=== PATIENT | female | born 1995 | race Caucasian/White ===

== ENCOUNTER 2023-06-29 18:15 | Emergency (ER) | payer OTHER, SELFPAY ==
[2023-06-29 18:28] VITALS: BP 143/82
[2023-06-29 18:43] LABS: % Basophils 0.4 % (0-2); % Eosinophils 0.9 % (0-6); % Immature Granulocytes 0.3 % (0-0.5); % Lymphocytes 15.1 % (20.5-51.1); % Monocytes 3.9 % (1.7-9.3); % Neutrophils 79.4 % (42.2-75.2); Absolute Basophils 0.1 10^3/uL (0-0.2); Absolute Eosinophils 0.1 10^3/uL (0-0.7); Absolute Immature Granulocytes 0.1 10^3/uL (0-0.05); Absolute Lymphocytes 2.4 10^3/uL (1.2-3.4); Absolute Monocytes 0.6 10^3/uL (0.1-0.6); Absolute Neutrophils 12.7 10^3/uL (1.4-6.5); Hematocrit 33.7 % (37.0-47.0); Hemoglobin 11.2 g/dL (12.0-16.0); Mean Corp Hgb Conc. 33.2 g/dL (33.0-37.0); Mean Corpuscular Hgb 24.8 pg (27.0-31.0); Mean Corpuscular Volume 74.6 fL (81.0-99.0); Mean Platelet Volume 10.3 fL (7.4-10.4); Nucleated Red Blood Cells % 0 %; Platelet Count 385 10^3/uL (130-400); Red Blood Cell Count 4.52 10^6/uL (4.20-5.40); Red Cell Dist. Width 14.5 % (11.5-14.5)
[2023-06-29 19:06] LABS: ALT (SGPT) 82 U/L (0-35); AST (SGOT) 147 U/L (14-36); Albumin 4.3 g/dl (3.5-5.0); Alkaline Phosphatase 89 U/L (38-126); Blood Urea Nitrogen 19 mg/dl (7-17); Calcium 9.7 mg/dl (8.4-10.2); Carbon Dioxide 24 mmol/L (22-30); Chloride 99 mmol/L (98-107); Glucose 94 mg/dl (70-99); Sodium 136 mmol/L (135-145); Total Protein 7.2 g/dl (6.3-8.2); eGFR > 60.00
[2023-06-29 19:08] LABS: Troponin I < 0.012 ng/ml
--- NOTE | 2023-06-29 19:43 | ED.GENMED ---
History of Present Illness
General
Chief Complaint: Chest Pain
Time Seen by Provider: 06/29/23 19:43
Travel History
Have you had any contact with someone who has COVID-19?: No
Do you have any symptoms of coronavirus? Fever > 100 degrees, chills, cough, shortness of breath, sore throat, loss of taste or smell, muscle aches, or headache?: No
History of Present Illness
History of Present Illness:
HPI: At about 4:20 PM today, the patient had abrupt onset chest pain starting in the center of the chest to radiate to the back. She took Motrin and now she is feeling improved. She describes the pain at its worst is 10 out of 10. She never had
any shortness of breath. She has no exertional symptoms. She is 12 weeks . Although she reports history of asthma this is only 'when I was a baby'. She is certain that anxiety is not a contributing factor.
EXAM:
GENERAL: Well appearing in minimal distress
HEENT: Moist oral mucosa
CARDIOVASCULAR: No murmurs, normal heart rate, regular rhythm, moderate to severe central chest wall tenderness primarily at the lower sternum
PULMONARY: No respiratory distress, breath sounds are clear and equal
ABDOMEN: Soft with no peritoneal signs, no tenderness, elevated BMI noted
NEUROLOGIC: Excellent strength all extremities, no coordination deficits
PSYCHIATRIC: Appropriate mental status, normal insight and judgement
EXTREMITIES: Nontender, no edema, moves all extremities equally, no calf tenderness no clinical suspicion for DVT
SKIN: No rash, no lesions
TIME OF INITIAL ENCOUNTER: 7:45 PM
NUMBER AND COMPLEXITY OF PROBLEMS ADDRESSED AT THE ENCOUNTER
� Chronic conditions affecting care: Asthma, endometriosis, anxiety
� Acute Exacerbation and/or Progression of Chronic Illness: This is an acute problem
� Differential Diagnosis includes: Chest wall pain, anxiety, costochondritis, ACS very unlike, pneumonia very unlikely, pneumothorax
AMOUNT AND/OR COMPLEXITY OF DATA TO BE REVIEWED AND ANALYZED
� I performed an independent evaluation of and my interpretation is:
EKG: Sinus 72, normal axis, no acute ST abnormality, no change from 09/30/2020
CT:
X-rays: Chest x-ray unremarkable
Laboratory Studies: White count is 16, hemoglobin is 11.2, chemistries unremarkable however AST and ALT are slightly elevated, alk phos and total bili are normal, troponin negative
Other:
� Review of other/old records: I was old records, last white count in October 2022 was slightly elevated 11.3
� Clinical information was obtained by an independent historian: I spoke to her sister at bedside
� Prescriptions/Medications Considered but not given:
� Further testing considered but not performed:
RISK OF COMPLICATIONS AND/OR MORBIDITY OR MORTALITY OF PATIENT MANAGEMENT
� Social determinants of health affecting care: Lives at home
� Discussion with other providers:
� Escalation of care including admission/observation vs risk of discharge considered: The patient had abrupt onset central chest pain but currently symptoms are improved after taking NSAIDs. She has moderately reproducible
anterior chest wall tenderness and never had any shortness of breath. Her vital signs are not consistent with PE. Will give Toradol for pain. She has been taking Motrin at home. On reassessment at 9 PM, she does report some concern over ongoing
pain. She does have significantly reproducible chest wall tenderness to the lower sternum. Although leukocytosis is noted, her vital signs are relatively unremarkable. Minimal transaminase elevation of doubtful clinical significance as she has no
abdominal pain or tenderness.
Past History
Past History
ED Past Medical History: Other (concussion 2010)
ED Past Surgical History: None
Social History
Tobacco: Non-smoker
Alcohol: None
Personal: Single
Living: with family
Employment: Employed
Family History
Family History: Negative Early CAD or Sudden
Phy Exam
Physical Exam
Physical Exam:
See HPI
Scores
Heart Score for Chest Pain Patients
STEMI patient?: Not applicable
Course
Orders/Labs/Results
Orders:
Orders
06/29/23 18:27
Electrocardiogram (*1) Stat
Reason for Study: Chest Pain
06/29/23 18:34
Complete Blood Count/With Diff Urgent
Comprehensive Metabolic Panel Urgent
Troponin I Urgent
06/29/23 19:51
CR Chest - 2 Views Urgent
Comment:
Reason For Exam: central chest pain
06/29/23 21:02
Ketorolac [Toradol] 30 mg IM NOW STA
Abnormal Lab Results
06/29/23
18:34
WBC 16.0 H 10^3/uL
(4.8-10.8)
Hgb 11.2 L g/dL
(12.0-16.0)
Hct 33.7 L %
(37.0-47.0)
MCV 74.6 L fL
(81.0-99.0)
MCH 24.8 L pg
(27.0-31.0)
Abs Immat Gran (auto) 0.1 H 10^3/uL
(0-0.05)
Absolute Neuts (auto) 12.7 H 10^3/uL
(1.4-6.5)
Neutrophils % 79.4 H %
(42.2-75.2)
Lymphocytes % 15.1 L %
(20.5-51.1)
BUN 19 H mg/dl
(7-17)
AST 147 H U/L
(14-36)
ALT 82 H U/L
(0-35)
06/29/23 18:34
06/29/23 18:34
Vital Signs
Initial and Last Documented VS:
Initial Vital Signs
Temp Pulse Resp BP Pulse Ox
98.2 F 90 17 143/82 99
06/29/23 18:28 06/29/23 18:28 06/29/23 18:28 06/29/23 18:28 06/29/23 18:28
Last Documented Vital Signs
Temp Pulse Resp BP Pulse Ox
98.2 F 90 17 143/82 99
06/29/23 18:28 06/29/23 18:28 06/29/23 18:28 06/29/23 18:28 06/29/23 18:28
*Critical Care Note
Total Time (30-74mins, 75-104mins- exclusive of procedures): Not Applicable
ED Attending Note
-
Portions of this chart may have been created with voice recognition software.� Occasional wrong word or��sound alike� substitutions may have occurred due to the inherent limitations of voice recognition software.
Discharge Plan
Departure
Patient Disposition: Home (Routine Discharge)
Date of Disposition: 06/29/23
Time of Disposition: 20:52
Patient with high blood pressure during this ER visit?: Yes
Discharge Problem:
Chest pain
Instructions: Chest Pain PCP Follow Up
Prescriptions:
No Action
fluoxetine 10 MG capsule
10 mg PO DAILY
fluoxetine 20 MG capsule
20 mg PO DAILY
metoclopramide HCl 10 mg tablet
10 mg PO Q6H PRN (Reason: nausea and vomiting) Qty: 7 0RF
Referrals:
Hola Narvaez MD [Family Provider] -
Activity Restrictions/Additional Instructions:
The cause of your symptoms is unclear. The chest x-ray was normal. EKG shows no acute abnormality and cardiac blood work is also normal. Your hemoglobin is just slightly low at 11.2.
Interventions
Interventions:
*Risk Screen - Suicide Last Done: 06/29/23 18:28
*General Assessment Last Done: 06/29/23 18:28
*Neglect/Abuse Screening Last Done: 06/29/23 18:28
*ED COVID-19 Vaccine History Last Done: 06/29/23 18:28
Discharge Date and Time
Print Language: [place]
[2023-06-29] MEDS: TORADOL 30 MG IM (21:19)
== END 2023-06-29 21:47 | disposition home or self-care (01) ==
LOC: EMR 18:15
PROVIDERS: Emergency Medicine; EMERGENCY PHYSICIAN Emergency Medicine; FAMILY PHYSICIAN Family Medicine
DX: R07.89 Other chest pain (principal); R74.01 Elevation of levels of liver transaminase levels; F41.9 Anxiety disorder, unspecified; N80.9 Endometriosis, unspecified; J45.909 Unspecified asthma, uncomplicated; R03.0 Elevated blood-pressure reading, without diagnosis of hypertension
CPT/HCPCS: 99285; 96372; 71046; 80053; 84484; 85025; 93005

== ENCOUNTER → 2023-06-30 14:49 | Outpatient (REF) | payer OTHER, SELFPAY | LOC: RAD 14:49 | PROVIDERS: ATTENDING PHYSICIAN Nurse Practitioner Family | DX: R10.11 Right upper quadrant pain (principal); R10.9 Unspecified abdominal pain; R74.01 Elevation of levels of liver transaminase levels; Z39.2 Encounter for routine postpartum follow-up; R80.8 Other proteinuria; D72.829 Elevated white blood cell count, unspecified | CPT/HCPCS: 76700 ==

== ENCOUNTER 2023-07-01 02:32 | Inpatient (IN) | payer OTHER, SELFPAY ==
[2023-06-30 23:27] VITALS: BMI 43.6
[2023-06-30 23:30] VITALS: BP 140/86
--- NOTE | 2023-06-30 23:56 | ED.GENMED ---
History of Present Illness
General
Chief Complaint: Chest Pain
Source: patient and records
Time Seen by Provider: 06/30/23 23:48
Travel History
Have you had any contact with someone who has COVID-19?: No
Do you have any symptoms of coronavirus? Fever > 100 degrees, chills, cough, shortness of breath, sore throat, loss of taste or smell, muscle aches, or headache?: No
History of Present Illness
History of Present Illness:
28-year-old female with past medical history of asthma, 3 months , presenting to the emergency department for evaluation after being seen last night for right-sided chest pain, worse with deep inspiration or yawning, worse with
palpation, symptoms continuing today despite Toradol given last night and continued Motrin at home with last dose being around 6 PM. Patient had lab work and a chest x-ray completed which did not show any abnormalities. She had an ultrasound done
as an outpatient today of her abdomen which was also unremarkable. Due to continued pain bite her ibuprofen decided to come to the ER again for further evaluation. She denies any cough, fevers, hemoptysis, lower extremity edema or any other
concerns. Patient is currently not breast-feeding. Social history noncontributory. Family history also noncontributory.
Past History
Past History
ED Past Medical History: Asthma, Psychiatric and Other (concussion 2010)
ED Past Surgical History:
Social History
Tobacco: Non-smoker
Alcohol: None
Drug: None
Personal:
Living: with family
Employment: Employed
Family History
Family History: Negative Early CAD or Sudden
Review of Systems
Review of Systems
All Other Systems: ROS reviewed and negative except as documented in HPI and ROS
Phy Exam
Physical Exam
Physical Exam:
GENERAL: Alert , in no apparent distress
EYE: conjunctiva clear
NECK: Supple
ENT: o/p clr, mmm.
CARDIAC: Regular rate and rhythm
LUNGS: Clear breath sounds bilaterally, no acute respiratory distress, no wheezes/rales/rhonchi
Chest wall: Clearly reproducible tenderness over the right anterior chest wall just superior to the breast and along the sternum on the right side
Abdomen: Soft, RUQ ttp but negative angel sign. no RLQ ttp. no r/g
NEUROLOGICAL: Alert and oriented
SKIN: Warm and dry, skin intact.
MUSCULOSKELETAL: well perfused. No edema
PSYCH: Normal and appropriate interaction.
Scores
Heart Failure Risk
Heart Failure Risk Score: Not Applicable
Heart Score for Chest Pain Patients
STEMI patient?: No
History: Slightly or Non-Suspicious
ECG: Normal
Age: </= 45 years
Risk Factors: No Risk Factors
Troponin: </= Normal Limit
Heart Score for Chest Pain Patients: 0
Heart Score Risk: 2.5% MACE over next 6 weeks
Withdrawal Assessment of Alcohol
Withdrawal Assessment Completed?: Not applicable
Course
Orders/Labs/Results
Orders:
Orders
06/30/23 23:56
Complete Blood Count/With Diff Urgent
Comprehensive Metabolic Panel Urgent
Troponin I Urgent
07/01/23 00:00
CT Chest Pe Study Urgent
Reason For Exam: right sided pleuritic pain, 3 months post
07/01/23 00:02
Electrocardiogram (*1) Urgent
Reason for Study: Chest Pain
EKG- Treatment ONCE
07/01/23 00:18
Lipase Urgent
Comment: ADDED
07/01/23 01:09
Morphine Sulfate 4 mg IV NOW STA
07/01/23 01:10
Piperacillin/Tazo 3.375 Gram [Zosyn] 3.375 gram in 50 ml IV NOW
07/01/23 01:12
Add On- LAB Urgent
Tests Added?: lipase
07/01/23 01:31
Ondansetron Injectable [Zofran] 4 mg .ROUTE .STK-MED ONE
07/01/23 02:19
Admit/Transfer Patient As Directed
Co-Sign Provider:
Level of Care: Inpatient admission
Assign to:: Medical/Surgical
Physician / Group: Stan
Diagnosis: Choledocholithiasis
Reason for Hospitalization: Choledocholithiasis
Expected length of stay greater than two midnights?: Yes
ELOS- Estimated Length of Stay in days: 3
I certify the patient meets the requirements for IP care: Yes
07/01/23 02:20
Code Status As Directed
Resuscitation Status: Full Code
07/01/23 03:13
0.9% Sodium Chloride 1000 ml [Nss] 1,000 ml IV 100 mls/hr
07/01/23 03:58
Acetaminophen [Tylenol] 650 mg PO Q4HPRN PRN
HYDROmorphone [Dilaudid] 0.5 mg IV Q4HPRN PRN
Ketorolac [Toradol] 15 mg IV Q6HPRN PRN
Ondansetron Injectable [Zofran] 4 mg IV Q6HPRN PRN
07/01/23 03:58
Consult Notification Routine
Specialty to Notify: Gastroenterology
Date consulting provider notified: 07/01/23
Time consulting provider notified: 08:58
Notified:: Provider
Comment: TT to Dr Hagan
GASTROINTESTINAL CONSULT Routine
Consulting Provider: Ashly Hagan
Was physician already notified: No
Reason for consult: Choledocholithiasis
SURGICAL CONSULT Routine
Consulting Provider: Sudhir Ellington
Was physician already notified: Yes
Reason for consult: Cholelithiasis / Choledocholithiasis
Activity As Directed
Activity Level: Ambulate
I/O [Intake/ Output] As Directed
Frequency: Per unit guidelines
Pneumatic Compression Sleeves As Directed
Type: Knee high
Vital Signs As Directed
Frequency: Per unit guidelines
Oxygen Therapy [O2 Therapy] [RESP] Routine
Titrate/Wean O2 to maintain O2 sat greater than (%): 94
DX Deep Vein Thrombosis Video Routine
07/01/23 06:28
Complete Blood Count/No Diff IN AM
07/01/23 08:00
Pantoprazole [Protonix IV] 40 mg IV DAILY
Piperacillin/Tazo 3.375 Gram [Zosyn] 3.375 gram in 50 ml IV Q6H
Abnormal Lab Results
07/01/23
00:18
Hgb 11.0 L g/dL
(12.0-16.0)
Hct 33.9 L %
(37.0-47.0)
MCV 76.7 L fL
(81.0-99.0)
MCH 24.9 L pg
(27.0-31.0)
MCHC 32.4 L g/dL
(33.0-37.0)
MPV 10.8 H fL
(7.4-10.4)
Abs Immat Gran (auto) 0.1 H 10^3/uL
(0-0.05)
Immature Gran % 1.3 H %
(0-0.5)
BUN 19 H mg/dl
(7-17)
Glucose 102 H mg/dl
(70-99)
Total Bilirubin 3.8 H D mg/dl
(0.2-1.3)
AST 1031 H* U/L
(14-36)
ALT 1225 H* U/L
(0-35)
Alkaline Phosphatase 247 H U/L
(38-126)
07/01/23 00:18
07/01/23 00:18
Vital Signs
Initial and Last Documented VS:
Initial Vital Signs
Temp Pulse Resp BP Pulse Ox
98.1 F 68 20 140/86 95
06/30/23 23:30 06/30/23 23:30 06/30/23 23:30 06/30/23 23:30 06/30/23 23:30
Last Documented Vital Signs
Temp Pulse Resp BP Pulse Ox
97.5 F 65 18 116/63 96
07/04/23 03:02 07/04/23 03:02 07/04/23 03:02 07/04/23 03:02 07/04/23 03:02
MDM/Problems Addressed
Differential Diagnosis Includes:
Costochondritis, pleurisy, PE, no concern for atypical ACS presentation, cholelithiasis (seen on US earlier today),choleycystitis thought to be less likely given US findings
MDM/Problems Addressed:
28-year-old female presenting back to the emergency department after being evaluated in the ER last night for right-sided musculoskeletal chest wall pain. Symptoms are unchanged today but persistent. Based off physical exam I still suspect
muscular etiology is to be the most likely diagnosis but given this is patient's second visit to the ER in 2 days will obtain a CTA of the chest to rule out pulmonary embolism. Labs from yesterday were reviewed. Will repeat basic labs and
troponin. Reassessment following with anticipation of patient has a normal CTA she will be discharged.
*Radiology
Radiology exam reviewed: radiology read reviewed
*Pulse Oximetry
Patient hypoxic: no
*EKG
Interpreted by ED Provider?: Yes
Comparison EKG: no changes
Heart Rate: 71
Rate: normal
Rhythm: sinus
Ischemia: no ischemia
*Critical Care Note
Total Time (30-74mins, 75-104mins- exclusive of procedures): Not Applicable
Data Reviewed
Review of Other/Old Records Reveals: Labs, Records and Radiology Studies
Patient Management
Discussion with other providers: Hospitalist and Picking Tech
Escalation/DeEscalation of care consider admission/obs:
Patient's labs reveal significant liver function abnormalities with a total bilirubin of 3.8, AST of 1031 and ALT of 1225. Patient had only mildly elevated AST and ALT yesterday on lab work. Her ultrasound from earlier today was reviewed which
showed cholelithiasis without evidence for acute cholecystitis, ultrasound was otherwise unremarkable.
Based off patient's lab findings combined with her ultrasound findings earlier today I do suspect cholecystitis/choledocholithiasis to now be the most likely diagnosis. I attempted to have patient CT scan canceled however she had just completed the
study after her liver function test had resulted. I notified on-call general surgeon, Dr. Ellington, who states patient should be admitted to medicine so GI can be consulted as well. He will consult on the patient in the morning. Agrees with plan
for Zosyn. Hospitalist team accepts for continued evaluation and treatment.
Patient was given 4 mg of morphine for further pain control.
ED Attending Note
-
Portions of this chart may have been created with voice recognition software.� Occasional wrong word or��sound alike� substitutions may have occurred due to the inherent limitations of voice recognition software.
Discharge Plan
Departure
Patient Disposition: Admit
Date of Disposition: 07/01/23
Time of Disposition: 01:15
Presentation/result/management discussed w/ accepting MD/DO: Hospitalist
Discharge Problem:
Choledocholithiasis with cholecystitis
Interventions
Interventions:
*Risk Screen - Suicide Last Done: 07/01/23 04:12
*General Assessment Last Done: 06/30/23 23:30
*Neglect/Abuse Screening Last Done: 06/30/23 23:30
ED- Fall Risk Assessment Last Done: 06/30/23 23:30
*ED COVID-19 Vaccine History Last Done: 06/30/23 23:30
*Nursing Disposition Last Done: 07/01/23 04:06
ED- Cardiac Assessment Last Done: 07/01/23 00:19
Discharge Date and Time
Discharge Date/Time: 07/01/23 04:08
[2023-07-01] VITALS (17 sets, daily range): BP systolic 91–132; BP diastolic 48–76; BMI 42.4
[2023-07-01 00:43] LABS: % Eosinophils 3.1 % (0-6); % Immature Granulocytes 1.3 % (0-0.5); % Lymphocytes 23.8 % (20.5-51.1); % Monocytes 5.7 % (1.7-9.3); % Neutrophils 65.1 % (42.2-75.2); Absolute Basophils 0.1 10^3/uL (0-0.2); Absolute Eosinophils 0.2 10^3/uL (0-0.7); Absolute Immature Granulocytes 0.1 10^3/uL (0-0.05); Absolute Lymphocytes 1.5 10^3/uL (1.2-3.4); Absolute Monocytes 0.4 10^3/uL (0.1-0.6); Hematocrit 33.9 % (37.0-47.0); Mean Corp Hgb Conc. 32.4 g/dL (33.0-37.0); Mean Corpuscular Hgb 24.9 pg (27.0-31.0); Mean Corpuscular Volume 76.7 fL (81.0-99.0); Mean Platelet Volume 10.8 fL (7.4-10.4); Nucleated Red Blood Cells % 0 %; Platelet Count 331 10^3/uL (130-400); Red Blood Cell Count 4.42 10^6/uL (4.20-5.40); Red Cell Dist. Width 14.5 % (11.5-14.5); White Blood Cell Count 6.1 10^3/uL (4.8-10.8)
[2023-07-01 00:44] LABS: Alkaline Phosphatase 247 U/L (38-126); Blood Urea Nitrogen 19 mg/dl (7-17); Carbon Dioxide 23 mmol/L (22-30); Chloride 107 mmol/L (98-107); Estimated Creatinine Clearance > 125 ml/min; Glucose 102 mg/dl (70-99); Potassium 4.1 mmol/L (3.5-5.1); Sodium 138 mmol/L (135-145); Total Bilirubin 3.8 mg/dl (0.2-1.3); Total Protein 6.7 g/dl (6.3-8.2); eGFR > 60.00
[2023-07-01 00:53] LABS: Troponin I < 0.012 ng/ml
[2023-07-01 00:57] LABS: ALT (SGPT) 1225 U/L (0-35); AST (SGOT) 1031 U/L (14-36)
[2023-07-01] MEDS: MORPHINE SULFATE 4 MG IV (01:18)
[2023-07-01] MEDS: ZOSYN 50 IV ×4 (01:18→20:21)
--- NOTE | 2023-07-01 02:23 | HPS.HSE ---
Family Physician
-
Family Physician: CHERRY Camp
Chief Complaint
-
Abd Pain
History of Present Illness
Patient is a 28y F with PMH significant for PCOS, endometriosis and obesity who presents to ED complaining of abdominal pain and back pain x 2 days. Patient states that severe pain started yesterday afternoon. She was seen here in the ED and
work-up at that time was unremarkable. Her pain persisted however and she was seen today by her PCP and sent for US. This showed evidence of gallstones, but no ductal dilation, wall thickening or other acute abnormality.
Patient continued to have severe abdominal pain and back pain however and returned to the ED this evening for further evaluation.
She has had some mild nausea, but no emesis (one episode here in the ED after receiving IV Morphine). No fevers / chills. No prior history of similar symptoms.
Patient is 12 weeks , s/p .
She is not actively breast feeding.
Medical History
Past Medical History
Past Medical History: Reports Other
Additional Past Medical History:
PCOS
Obesity
Endometriosis
Anxiety / Depression
Past Surgical History: Reports Other
Additional Past Surgical History:
(12 weeks ago)
Exploratory Laparoscopy (endometriosis)
Social History
Tobacco: Non-smoker
Alcohol: None
Drug: None
Family History
Family History: Other (Father: Lung Cancer Multiple Women on Paternal Side: Breast Cancer)
Allergies / Home Medications
Allergies reflects when Allergies were last updated in [employer].
Home Medications with original date entered in [employer]
Allergy/Medication List:
Allergies
Allergy/AdvReac Type Severity Reaction Status Date / Time
No Known Allergies Allergy Verified 06/30/23 23:30
Home Medications
fluoxetine 20 mg capsule 20 mg PO DAILY 09/30/20
Review of Systems
-
History Source: Patient
A 12 point ROS was completed and negative except as noted: Yes
Constitutional: Denies Fever or Chills
EENT: Denies Sore Throat
Respiratory: Denies Cough or Trouble Breathing
Cardiac: Reports Chest Pain; Denies Diaphoresis or Palpitations
Abdomen/GI: Reports Abdominal Pain and Nausea; Denies Vomiting, Diarrhea, Constipated, Bloody Stools or Black Stools
: Denies Dysuria, Frequency or Flank Pain
Musculoskeletal: Reports Other (Back Pain); Denies Joint Pain or Edema
Neurological: Denies Dizzy or Headache
Psych: Denies Depression or Anxiety
Physical Exam
Vital Signs
Vital Signs
Temp Pulse Resp BP Pulse Ox
98.1 F 68 20 130/71 97
06/30/23 23:30 06/30/23 23:30 06/30/23 23:30 07/01/23 01:00 07/01/23 01:15
Physical Exam
General: Other (28y F in mild distress due to pain.)
HEENT: Moist mucous membranes and PERRLA
Respiratory: Clear; No Wheezes, Rales or Rhonchi
Cardiac: S1/S2 and Regular Rhythm; No Murmur
GI: Other (Obese, significant tenderness in RUQ with diffuse /mild tenderness. Pos BS.)
Musculoskeletal: No Clubbing, No Cyanosis and No Edema
Neuro: AO x 3
Laboratory Results
-
07/01/23 00:18
07/01/23 00:18
Laboratory Results
Total Bilirubin 3.8 mg/dl (0.2-1.3) H D 07/01/23 00:18
AST 1031 U/L (14-36) H* 07/01/23 00:18
ALT 1225 U/L (0-35) H* 07/01/23 00:18
Alkaline Phosphatase 247 U/L (38-126) H 07/01/23 00:18
Troponin I < 0.012 ng/ml 07/01/23 00:18
Impression/Plan
-
A/P: Patient is a 28y F with PMH significant for PCOS, endometriosis and recent - now 12 weeks - who presents to ED complaining of abdominal pain and back pain x 2 days.
Cholelithiasis / Choledocholithiasis +/- Acute Cholecystitis
- Admit for further evaluation and treatment.
- Patient presents with severe abdominal pain and nausea with marked cholestatic LFT abnormality and gallstones (but no other findings) on US earlier today.
- NPO, IVF support, pain control and antiemetics as needed.
- GI and Surgery evaluations for further recommendations.
- ? MRCP v ERCP.
- Will benefit from eventual cholecystectomy.
- Continue IV Zosyn for now.
Endometriosis
PCOS
- Stable. Not currently on OCPs, other medications.
Anxiety / Depression
- Stable. Recently restarted fluoxetine after recent - no issues with this med previously.
- Will hold for now.
12 Weeks
- s/p uneventful .
- Patient is not - so no need to modify medications, etc.
Morbid Obesity due to excess calories
- Affects all aspects of care - specifically increased risks for gallstone / gallbladder disease.
- Encourage healthy diet and increased exercise with goal of weight loss.
DVT Prophylaxis: SCDs
Code Status: Full
[2023-07-01 02:26] LABS: Lipase 140 U/L (23-300)
[2023-07-01] MEDS: NSS 1000 IV ×3 (03:14→23:26)
--- NOTE | 2023-07-01 04:30 | PTCARENOTE ---
Received patient from ED. Patient AAOx3, lungs clear, heart rate reg, no edema, positive pulses. Lower abdomen approximated bikini incision, tender upper right quadrant. 4/10 on the pain scale. VSS. IVF infusing. Patient admitted to the
unit. Patient aware they are NPO except for sips of clears and medications. Call bajwa in reach.
[2023-07-01] MEDS: TORADOL 15 MG IV (04:32)
[2023-07-01 07:03] LABS: Hematocrit 34.7 % (37.0-47.0); Hemoglobin 10.9 g/dL (12.0-16.0); Mean Corp Hgb Conc. 31.4 g/dL (33.0-37.0); Mean Corpuscular Hgb 24.8 pg (27.0-31.0); Mean Corpuscular Volume 78.9 fL (81.0-99.0); Mean Platelet Volume 10.8 fL (7.4-10.4); Platelet Count 302 10^3/uL (130-400); Red Cell Dist. Width 14.5 % (11.5-14.5); White Blood Cell Count 6.8 10^3/uL (4.8-10.8)
--- NOTE | 2023-07-01 07:31 | CON.GS ---
Medical History
-
Chief Complaint: Epigastric and RUQ pain
History of Present Illness:
Patient is a 28 yo F with a PMH of morbid obesity, depression/anxiety, PCOS, endometriosis s/p diagnostic laparoscopy, s/p approximately 12 weeks ago. Ms. Noyola presents with 48 hours of persistent epigastric and back pain. She states
that her symptoms began acutely on . No clear association with oral intake. She describes severe epigastric and RUQ abdominal pain with radiation to her back. Associated mild nausea, 1 episode of vomiting following administration of
morphine here in the hospital. No fevers or chills. She reports some jaundice, but denies any pale stools or tea colored urine. She initially presented to the ER on 06/28, she was told that her symptoms were related to her recent .
Her pain persisted prompting presentation to her PCP who ordered an outpatient ultrasound demonstrating cholelithiasis without any evidence of cholecystitis. Her symptoms persisted prompting 3 presentation to the ED. Workup in the ED was notable
for a normal WBC and lipase, as well as elevations in her bilirubin and LFTs.
Past Medical History
Past Medical History: Psychiatric (Depression/anxiety) and Other (Morbid obesity, PCOS, endometriosis)
Past Surgical History: and Other (Diagnostic laparoscopy for endometriosis)
Social History
Tobacco: Non-Smoker
Alcohol: None
Drug: None
Personal:
Living: With Family
Family History
Family History: Other (Mother postcholecystectomy)
Allergies / Home Medications
Allergy/AdvReac Type Severity Reaction Status Date / Time
No Known Allergies Allergy Verified 06/30/23 23:30
�Medication �Instructions �Recorded �Confirmed �Type
fluoxetine 20 mg capsule 20 mg PO DAILY 09/30/20 07/01/23 History
Review of Systems
-
A 10 point review of systems was completed, and was negative except as per HPI.
Physical Exam
Vital Signs
Temp Pulse Resp BP Pulse Ox
98.2 F 62 20 108/68 98
07/01/23 04:38 07/01/23 04:38 07/01/23 04:38 07/01/23 04:38 07/01/23 04:38
06/30/23 07/01/23 07/02/23
06:59 06:59 06:59
Actual Weight 105.097 kg
Body Mass Index (BMI) 42.4
Lab Results
07/01/23 06:28
WBC 6.8 10^3/uL (4.8-10.8) 07/01/23 06:28
Hgb 10.9 g/dL (12.0-16.0) L 07/01/23 06:28
Hct 34.7 % (37.0-47.0) L 07/01/23 06:28
Plt Count 302 10^3/uL (130-400) 07/01/23 06:28
Abs Immat Gran (auto) 0.1 10^3/uL (0-0.05) H 07/01/23 00:18
Neutrophils % 65.1 % (42.2-75.2) 07/01/23 00:18
Physical Exam
General: Well Developed, Well Nourished and No Apparent Distress
HEENT: Scleral Icterus
Respiratory: Non Labored Respirations
Cardiac: Regular Rhythm
GI: Soft, Tender (RUQ/epigastrium), Distended, Obese and Other (Nonperitoneal)
Musculoskeletal: No Edema
Skin: Warm and Dry
Neuro: Nonfocal/Grossly Intact
Data Reviewed
-
CT Scan: Image Personally Visualized and interpreted and Report Reviewed by me
Ultrasound: Image Personally Visualized and interpreted and Report Reviewed by me
Labs: Labs Reviewed by me
Old Records: Reviewed
Assessment / Plan
-
Patient is a 28 yo F p/w likely choledocholithiasis
The natural history and pathophysiology of biliary and stone disease was discussed. Anatomy was reviewed utilizing pictorial images. Role of cholecystectomy in preventing future episodes of cholecystitis and potentially addressing her
choledocholithiasis was discussed. Options for management including continued workup with an MRI imaging to confirm the presence of choledocholithiasis versus proceeding with cholecystectomy were considered and discussed. The role and potential
need for an ERCP was discussed. We discussed that given this episode, she will need her gallbladder out regardless.
Plan for a laparoscopic cholecystectomy with intraoperative cholangiogram. The procedure itself, as well as the risks, benefits, and alternatives was discussed. Specifically, we discussed the risks of bleeding, infection, injury to surrounding
structures (bowel, bile ducts), CBD injury, need for open procedure. Typical postprocedural recovery was discussed. All questions answered. Consent signed.
-- Laparoscopic cholecystectomy with intraoperative cholangiogram
-- NPO, IVF
-- Antibiotics: Zosyn
-- Pain control: Tylenol and IV Dilaudid PRN
--- NOTE | 2023-07-01 07:39 | W.SUR.PREOP ---
Pre-Operative Surgical Note
-
I have examined this patient prior to the performance of the scheduled procedure.
The patient's condition is unchanged from the time of the current History and
Physical and the patient is able to undergo the scheduled procedure.
[2023-07-01 07:40] LABS: Albumin 3.7 g/dl (3.5-5.0); Alkaline Phosphatase 271 U/L (38-126); Blood Urea Nitrogen 18 mg/dl (7-17); Calcium 8.7 mg/dl (8.4-10.2); Carbon Dioxide 24 mmol/L (22-30); Chloride 108 mmol/L (98-107); Estimated Creatinine Clearance > 125 ml/min; Glucose 88 mg/dl (70-99); Potassium 4.1 mmol/L (3.5-5.1); Sodium 137 mmol/L (135-145); Total Protein 6.4 g/dl (6.3-8.2); eGFR > 60.00
[2023-07-01 07:47] LABS: ALT (SGPT) 1169 U/L (0-35); AST (SGOT) 769 U/L (14-36)
--- NOTE | 2023-07-01 08:05 | CON.GI ---
Addendum entered and electronically signed by Ashly Hagan MD 07/01/23 13:17:
I saw and examined the patient.
The LANE ATTENDANT's note was reviewed and I agree with the note.
Comment: This is a 28-year-old female who presented initially to the emergency room on the with chest pain and was ruled out for acute coronary syndrome and was noted to have mildly elevated AST and ALT level normal bilirubin discharged she
presented again to the emergency room last night with pain radiating to the back and repeat LFTs from yesterday were significantly elevated and also abdomen ultrasound showed gallstones. CBD was 6 mm we were consulted for possible
choledocholithiasis. She did have a cholecystectomy today with Dr. Ellington with IntraOp cholangiogram which showed choledocholithiasis.
Assessment and plan symptomatic gallstones status postcholecystectomy today and she also has significantly elevated LFTs with transaminitis and also elevated bilirubin and alkaline phosphatase consistent with choledocholithiasis which was confirmed
on IOC today. Will schedule her for ERCP on Monday currently has no cholangitis and she is already on antibiotics.
She also has microcytic anemia most likely from recent she is 3 months and from blood loss from menses.
Original Note:
Consultation
-
Date/Time Consultation Requested: 07/01/238
Date/Time Consultation Performed: 07/01/23 0840
Requesting Provider: Dr. Pierce
Performing Provider: Dr. Hagan/CHERRY Cornejo
Reason for Consultation: choledocholithiasis
Medical History
Chief Complaint / HPI
Chief Complaint: chest pain
History of Present Illness:
28-year-old female with past medical history of asthma, 3 months , who presents to the emergency room for the second time for right sided chest discomfort, nausea and vomiting. The patient was found to have elevated LFTs.
Ultrasound showed cholelithiasis with dilatation of the common bile duct but no choledocholithiasis clearly seen on ultrasound. Asked to evaluate the same. Patient states that on she developed acute onset of chest discomfort mostly
localized in the right side that was bandlike fashion, sharp, radiated through to her back. Associated with nausea. She came to the emergency room the same day with normal white count normal LFTs. She was discharged home and took ibuprofen 800 mg
which took the 'edge off the pain'. Because of persistent symptoms she came back to the emergency room. Ultrasound showed cholelithiasis. CBD of 6 mm. Elevated LFTs and an obstructive pattern. The patient did have an episode of vomiting after
taking morphine. She states the pain is currently a 5 out of 10. And it is the same as yesterday. She denies any fevers, chills, melena, hematochezia, dysphagia or odynophagia. No early satiety or unintentional weight loss. She denies any
acholic stools or bilirubinuria. She denies any history of hepatitis, jaundice, liver disease, history of hepatitis, excessive Tylenol use or any Tylenol use recently. She denies any tattoos, piercings, IV drug use, new medications or
supplementation. She recently restarted her fluoxetine. She has been on this in the past but took a hiatus during her . She has had no overall shellfish. No other family members are sick.
Past Medical History
Past Medical History: Asthma and Other (Recently by 3 months.)
Past Surgical History: and Gynecological (Robotic laparoscopic bilateral ovarian cystectomy and lysis of adhesion)
Social History
Tobacco: Non-Smoker
Alcohol: None
Drug: None
Personal:
Living: With Family
Family History
Family History: Other (No family history of gastrointestinal malignancy or IBD)
Allergies / Home Medications
Allergy/AdvReac Type Severity Reaction Status Date / Time
No Known Allergies Allergy Verified 06/30/23 23:30
�Medication �Instructions �Recorded
fluoxetine 20 mg capsule 20 mg PO DAILY 09/30/20
Review of Systems
-
All other systems: A 12 pt ROS was Negative except as stated above in HPI
Vital Signs
Temp Pulse Resp BP Pulse Ox
98.2 F 62 20 108/68 98
07/01/23 04:38 07/01/23 04:38 07/01/23 04:38 07/01/23 04:38 07/01/23 04:38
Physical Exam
Exam
General: No Apparent Distress
HEENT: Other (Sclera icteric)
Respiratory: Clear
Cardiac: Regular Rhythm
GI: Soft, Non Distended, Normal Bowel Sounds and Tender (Mild right upper quadrant tenderness)
Musculoskeletal: No Edema
Skin: Warm and Dry
Neuro: AO x 3
Results
WBC 6.8 10^3/uL (4.8-10.8) 07/01/23 06:28
Hgb 10.9 g/dL (12.0-16.0) L 07/01/23 06:28
Hct 34.7 % (37.0-47.0) L 07/01/23 06:28
MCV 78.9 fL (81.0-99.0) L 07/01/23 06:28
Plt Count 302 10^3/uL (130-400) 07/01/23 06:28
Absolute Neuts (auto) 4.0 10^3/uL (1.4-6.5) 07/01/23 00:18
Sodium 137 mmol/L (135-145) 07/01/23 06:29
Potassium 4.1 mmol/L (3.5-5.1) 07/01/23 06:29
Chloride 108 mmol/L (98-107) H 07/01/23 06:29
Carbon Dioxide 24 mmol/L (22-30) 07/01/23 06:29
BUN 18 mg/dl (7-17) H 07/01/23 06:29
Creatinine 0.7 mg/dL (0.6-1.0) 07/01/23 06:29
Calcium 8.7 mg/dl (8.4-10.2) 07/01/23 06:29
Total Bilirubin 4.0 mg/dl (0.2-1.3) H 07/01/23 06:29
AST 769 U/L (14-36) H* 07/01/23 06:29
ALT 1169 U/L (0-35) H* 07/01/23 06:29
Alkaline Phosphatase 271 U/L (38-126) H 07/01/23 06:29
Lipase 140 U/L (23-300) 07/01/23 00:18
Diagnostic Image Results:
Ultrasound the abdomen 06/30/2023:
IMPRESSION:
1. No acute intra-abdominal process identified sonographically.
2. Cholelithiasis. No findings suspicious for acute cholecystitis.
3. Mild splenomegaly, slightly increased as compared with prior CT 2020.
4. Limited evaluation of midline structures secondary to overlying bowel gas as above.
An urgent reading was requested for this examination; a preliminary report was provided and documented according to standard department procedure.
Electronically signed by Junaid Gomez DO 06/30/2023 4:19 PM
CTA chest 07/01/2023:
IMPRESSION:
No evidence of pulmonary embolism.
The examination was performed after-hours on an emergency basis, with initial preliminary interpretation provided by [facility].
Electronically signed by Yogesh Mccann MD 07/01/2023 6:39 AM
Prior GI Procedures:
EGD: Never
Colonoscopy: Never
Assessment / Plan
-
28-year-old female with past medical history of asthma, 3 months , who presents to the emergency room for the second time for right sided chest discomfort, nausea and vomiting. The patient was found to have elevated LFTs.
Ultrasound showed cholelithiasis with dilatation of the common bile duct but no choledocholithiasis clearly seen on ultrasound. Currently WBC 6.8, hemoglobin 10.9, hematocrit 34.7, platelets 302, sodium 137, potassium 4.1, chloride 108, CO2 24, BUN
18, creatinine 0.7, glucose 88, total bilirubin 4.0 up from 3.8, direct bilirubin 2.0, AST 769 down from 1031, ALT 1169 down from 1225, alk phos 271 up from 247. Troponin less than 0.012, lipase 140. Ultrasound of the abdomen shows CBD 6 mm.
Cholelithiasis. Mild splenomegaly.
Impression:
Cholelithiasis
Abdominal pain with elevated LFTs in an obstructive pattern concerning for possible passed stone versus choledocholithiasis
Transaminitis
Plan:
-Patient going to OR today for cholecystectomy and intraoperative cholangiogram
-If patient has CBD stone will need ERCP, this would need to occur on Monday
-Trend LFTs
-Further recommendations to be forthcoming.
Data Reviewed
-
CT Scan: Report Reviewed by me
Ultrasound: Report Reviewed by me
-
-
Thank you for consultation and allowing me to participate in the patient's care. Please call the care transition mgr GI physician during the after hours with any questions or concerns.
[2023-07-01] MEDS: NSS (PRESERVATIVE FREE) 10 ML IV (08:29)
[2023-07-01] MEDS: PROTONIX IV 40 MG IV (08:29)
--- NOTE | 2023-07-01 12:24 | W.IMMPOSTOP ---
Addendum entered and electronically signed by Sudhir Ellington MD 07/01/23 12:48:
Dic# [id number]
Original Note:
Surgical Immed Post Op Note
-
Primary Surgeon: Chandana
Assisting Surgeon: None
Pre-op Diagnosis: Choledocholithiasis
Post-op Diagnosis: Choledocholithiasis
Procedure Performed: Laparoscopic cholecystectomy
Anesthesia Type: General
Specimen / Cultures:
1. Gallbladder
Estimated Blood Loss: 3 cc
Complications: None
Operative Findings:
1. Mildly distended and flaccid GB with some wall thickening
2. Critical view of safety
3. IOC with distal filling defect, persistent despite flushing and Glucagon
[2023-07-01] MEDS: ZOFRAN 4 MG IV ×2 (12:48→18:21)
[2023-07-01] MEDS: DEMEROL 12.5 MG IV (12:51)
--- NOTE | 2023-07-01 13:29 | W.PN.HOSP.TC ---
Today's Communication/Plan
-
Anemia labs
Clear liquid diet
Assessment / Plan
Assessment / Plan
Gen-AAOx3, NAD, morbid obesity
HEENT-NC, AT, anicteric, clear oral mm
Neck-supple
CV-reg, no M, +S1/S2
Lungs-clear B/L
Abd-soft, NT, ND
Ext-no edema
Musculoskeletal-no cyanosis, clubbing
Skin-warm and dry
Neuro-grossly non-focal
Psych-calm, cooperative
Acute calculus cholecystitis -stable after laparoscopic cholecystectomy today. Diet per surgery.
Choledocholithiasis -GI plans on ERCP on Monday. Transaminases trending down. Continue empiric IV Zosyn.
Microcytic anemia - likely due to state. Check anemia labs.
PCOS
Endometriosis
Anxiety/depression -on fluoxetine.
12 weeks
Morbid obesity due to excess calories
Full code
Updated .
Anticipated Discharge: > 48 hours
Subjective/Interval History
-
Date of Service: July 01, 2023
Patient seen and examined, stable postop. Complaining of abdominal pain but falling asleep on exam.
Objective Data
-
Labs:
Laboratory Results
07/01/23 07/01/23
06:28 06:29
WBC 6.8
Hgb 10.9 L
Hct 34.7 L
Plt Count 302
Sodium 137
Potassium 4.1
Chloride 108 H
Carbon Dioxide 24
BUN 18 H
Creatinine 0.7
Glucose 88
Calcium 8.7
Total Bilirubin 4.0 H
AST 769 H*
ALT 1169 H*
Alkaline Phosphatase 271 H
Vital Signs:
Vital Signs
Temp Pulse Resp BP Pulse Ox
97.5 F 63 14 109/70 96
07/01/23 13:15 07/01/23 13:15 07/01/23 13:15 07/01/23 13:15 07/01/23 13:15
I&O
06/30/23 07/01/23 07/02/23
06:59 06:59 06:59
Intake Total 300 / 300 100 / 100
Balance 300 / 300 100 / 100
Review of Systems
-
History Source: Patient
All other systems: Reviewed and negative
[2023-07-01] MEDS: DILAUDID 0.5 MG IV ×3 (13:36→22:19)
[2023-07-01 13:54] LABS: Reticulocyte Count 1.1 % (0.4-2.8)
[2023-07-01 13:56] LABS: Iron 81 ug/dl (37-170)
[2023-07-01 14:06] LABS: Percent Saturation 22 % (20-50); Total Iron Binding Capacity 354 ug/dl (265-497)
[2023-07-01 14:33] LABS: Ferritin 25.8 ng/ml (6.24-137)
[2023-07-01 15:04] LABS: Folate > 20.0 ng/ml (2.76-20); Vitamin B12 840 pg/ml (239-931)
[2023-07-01] MEDS: LOVENOX SC (17:35)
[2023-07-01] MEDS: TORADOL 10 MG IV (21:36)
[2023-07-01] MEDS: CHLORASEPTIC/SORE THROAT SPRAY 2 SPRAY PO (23:20)
[2023-07-02] MEDS: ZOSYN 50 IV ×4 (01:48→21:21)
[2023-07-02] MEDS: DILAUDID 0.5 MG IV ×5 (03:38→22:47)
[2023-07-02 06:44] LABS: AST (SGOT) 486 U/L (14-36); Albumin 3.6 g/dl (3.5-5.0); Alkaline Phosphatase 293 U/L (38-126); Blood Urea Nitrogen 10 mg/dl (7-17); Calcium 8.6 mg/dl (8.4-10.2); Carbon Dioxide 22 mmol/L (22-30); Chloride 108 mmol/L (98-107); Estimated Creatinine Clearance > 125 ml/min; Glucose 98 mg/dl (70-99); Potassium 4.4 mmol/L (3.5-5.1); Sodium 138 mmol/L (135-145); Total Bilirubin 4.3 mg/dl (0.2-1.3); Total Protein 6.4 g/dl (6.3-8.2); eGFR > 60.00
[2023-07-02 06:50] LABS: ALT (SGPT) 888 U/L (0-35)
[2023-07-02 07:00] VITALS: BP 121/78
[2023-07-02] MEDS: NSS (PRESERVATIVE FREE) 10 ML IV (08:01)
[2023-07-02] MEDS: PROTONIX IV 40 MG IV (08:01)
--- NOTE | 2023-07-02 08:05 | W.PN.GI.CBS2 ---
Today's Communication / Plan
-
cepacol
continue abx and trend LFTS
ERCP in AM
Assessment / Plan
-
28-year-old female with past medical history of asthma, 3 months , who presents to the emergency room for the second time for right sided chest discomfort, nausea and vomiting. The patient was found to have elevated LFTs.
Ultrasound showed cholelithiasis with dilatation of the common bile duct but no choledocholithiasis clearly seen on ultrasound. Currently WBC 6.8, hemoglobin 10.9, hematocrit 34.7, platelets 302, sodium 137, potassium 4.1, chloride 108, CO2 24, BUN
18, creatinine 0.7, glucose 88, total bilirubin 4.0 up from 3.8, direct bilirubin 2.0, AST 769 down from 1031, ALT 1169 down from 1225, alk phos 271 up from 247. Troponin less than 0.012, lipase 140. Ultrasound of the abdomen shows CBD 6 mm.
Cholelithiasis. Mild splenomegaly.
Impression:
Cholelithiasis
Abdominal pain with elevated LFTs - GS and choledocholithiasis
Transaminitis
Plan:
symptomatic gallstones status postcholecystectomy 06/30-POD # 1
she also has significantly elevated LFTs with transaminitis and also elevated bilirubin and alkaline phosphatase consistent with choledocholithiasis which was confirmed on IOC
Will schedule her for ERCP on Monday currently has no cholangitis and she is already on antibiotics.
LFTs are trending down but still elevated will also get hepatitis serologies
She does have mild sore throat likely from intubation yesterday will start her on Cepacol lozenges
She also has microcytic anemia most likely from recent she is 3 months and from blood loss from menses.
Subjective
Subjective
Date of Service: July 02, 2023
Has mild incisional pain and still has mild epigastric pain also. She also complains of sore throat. Tolerating clear liquids
Objective
Data Reviewed
Laboratory Data:
Laboratory Results
07/01/23 06:28
07/02/23 05:54
Laboratory Results
Total Bilirubin 4.3 mg/dl (0.2-1.3) H 07/02/23 05:54
AST 486 U/L (14-36) H 07/02/23 05:54
ALT 888 U/L (0-35) H* 07/02/23 05:54
Alkaline Phosphatase 293 U/L (38-126) H 07/02/23 05:54
Lipase 140 U/L (23-300) 07/01/23 00:18
Vital Signs and I&O:
Vital Signs
Temp Pulse Resp BP Pulse Ox
97.6 F 55 16 111/66 99
07/01/23 23:10 07/01/23 23:10 07/01/23 23:10 07/01/23 23:10 07/01/23 23:10
I&O
07/01/23 07/02/23 07/03/23
06:59 06:59 06:59
Intake Total 300 / 300 4070 / 4070
Balance 300 / 300 4070 / 4070
Physical Exam
Physical Exam
Cardiology: Normal Sinus Rhythm
Pulmonary: Clear
GI: Soft, Non Distended, Tender (Mild tenderness in epigastric and right upper quadrant area and also at incision sites) and Normal Bowel Sounds
[2023-07-02] MEDS: ANESTHETIC LOZENGE 1 LOZENGE PO (08:23)
--- NOTE | 2023-07-02 08:25 | W.PN.GS2 ---
Today's Communication / Plan
-
-- Diet per GI
-- Abx per GI
-- DC instructions updated
-- F/u in office in 2-4 weeks
-- Call with any questions or concerns
Assessment / Plan
-
Patient is a 28 yo F POD#1 s/p laparoscopic cholecystectomy with IOC
Recovering well. No postoperative concerns. Operative cholangiogram notable for choledocholithiasis, tentative plans for ERCP tomorrow (07/02)
-- Diet per GI
-- Abx per GI
-- DC instructions updated
-- F/u in office in 2-4 weeks
-- Call with any questions or concerns
Subjective Data
-
Date of Service: July 02, 2023
Abdominal soreness. No nausea or vomiting. No fevers or chills. Ambulating. Voiding.
Objective Data
-
Intake and Output
07/01/23 07/02/23 07/03/23
06:59 06:59 06:59
Intake Total 300 / 300 4070 / 4070
Balance 300 / 300 4070 / 4070
Intake:
Oral fluids 1470 / 1470
IV fluids (Total) 300 / 300 2400 / 2400
normsol 100 / 100
IV piggybacks 200 / 200
Other:
Number of approximated MODERATE 4
amounts of urine
Vital Signs
Temp Pulse Resp BP Pulse Ox
97.6 F 55 16 111/66 99
07/01/23 23:10 07/01/23 23:10 07/01/23 23:10 07/01/23 23:10 07/01/23 23:10
Lab Results
07/01/23 06:28
07/02/23 05:54
Calcium 8.6 mg/dl (8.4-10.2) 07/02/23 05:54
Total Bilirubin 4.3 mg/dl (0.2-1.3) H 07/02/23 05:54
Direct Bilirubin 2.0 mg/dl (0.0-0.4) H 07/01/23 06:29
AST 486 U/L (14-36) H 07/02/23 05:54
ALT 888 U/L (0-35) H* 07/02/23 05:54
Alkaline Phosphatase 293 U/L (38-126) H 07/02/23 05:54
Total Protein 6.4 g/dl (6.3-8.2) 07/02/23 05:54
Albumin 3.6 g/dl (3.5-5.0) 07/02/23 05:54
Physical Exam
-
Gen: NAD
Abd: soft, obese, appropriately tender, ND, non-peritoneal, incisions c/d/i - no erythema, ecchymosis or drainage
--- NOTE | 2023-07-02 09:53 | CM ---
Reviewed the chart notes and spoke with the patient at the bedside. The patient resides with her spouse in a two story home with one step to enter. The patient reports no DME/VN/SNF in the past. The patient confirmed her pharmacy of choice is the
[facility]. The patient is tentative plans for ERCP tomorrow. CM continues to be available to patient/family and is monitoring medical plan for needs at discharge.
Plan: Discharge to home when medically stable. No needs anticipated.
--- NOTE | 2023-07-02 09:58 | W.PN.HOSP.TC ---
Today's Communication/Plan
-
N.p.o. after midnight
Assessment / Plan
Assessment / Plan
Gen-AAOx3, NAD, morbid obesity
HEENT-NC, AT, anicteric, clear oral mm
Neck-supple
CV-reg, no M, +S1/S2
Lungs-clear B/L
Abd-soft, nondistended, mild tenderness, no guarding
Ext-no edema
Musculoskeletal-no cyanosis, clubbing
Skin-warm and dry
Neuro-grossly non-focal
Psych-calm, cooperative
Acute calculus cholecystitis -stable after laparoscopic cholecystectomy 06/30. Clear liquid diet today.
Choledocholithiasis -GI plans on ERCP on Monday. Transaminases trending down. Continue empiric IV Zosyn.
Microcytic anemia - likely due to state. No signs of iron deficiency based on labs. B12, folic acid normal.
PCOS
Endometriosis
Anxiety/depression -on fluoxetine.
12 weeks
Morbid obesity due to excess calories
Full code
Updated .
Anticipated Discharge: 24 - 48 hours
Subjective/Interval History
-
Date of Service: July 02, 2023
Patient seen and examined. Complaining of mild abdominal pain. Looks comfortable.
Objective Data
-
Labs:
Laboratory Results
07/02/23
05:54
Sodium 138
Potassium 4.4
Chloride 108 H
Carbon Dioxide 22
BUN 10
Creatinine 0.7
Glucose 98
Calcium 8.6
Total Bilirubin 4.3 H
AST 486 H
ALT 888 H*
Alkaline Phosphatase 293 H
Vital Signs:
Vital Signs
Temp Pulse Resp BP Pulse Ox
98.2 F 72 16 121/78 97
07/02/23 07:00 07/02/23 07:00 07/02/23 07:00 07/02/23 07:00 07/02/23 07:00
I&O
07/01/23 07/02/23 07/03/23
06:59 06:59 06:59
Intake Total 300 / 300 4070 / 4070
Balance 300 / 300 4070 / 4070
Review of Systems
-
History Source: Patient
All other systems: Reviewed and negative
[2023-07-02] MEDS: NSS 1000 IV (11:08)
[2023-07-02] MEDS: TORADOL 10 MG IV (11:17)
[2023-07-02 15:00] VITALS: BP 104/78
[2023-07-02] MEDS: TORADOL 30 MG IV (17:35)
[2023-07-02] MEDS: ZOFRAN 4 MG IV (17:47)
[2023-07-02 17:55] VITALS: BP 118/76
--- NOTE | 2023-07-02 18:04 | W.PN.UPDATE ---
Update Note
Progress Note Update
Called by nurse for recurrence of pain and nausea.
Patient seen and examined. She has epigastric and right upper quadrant tenderness. She states that the symptoms are similar to when she presented first in the emergency room.
Suspect biliary colic due to known CBD stone.
Check stat labs including lipase.
Give a dose of IV Dilaudid now. May need to check CT abdomen/pelvis tonight if not improved or if lipase elevated.
Discussed with GI service.
[2023-07-02] MEDS: LOVENOX SC (18:19)
[2023-07-02 18:37] LABS: AST (SGOT) 406 U/L (14-36); Albumin 3.6 g/dl (3.5-5.0); Alkaline Phosphatase 320 U/L (38-126); Blood Urea Nitrogen 8 mg/dl (7-17); Calcium 8.4 mg/dl (8.4-10.2); Carbon Dioxide 25 mmol/L (22-30); Chloride 108 mmol/L (98-107); Estimated Creatinine Clearance > 125 ml/min; Glucose 97 mg/dl (70-99); Lipase 95 U/L (23-300); Potassium 3.8 mmol/L (3.5-5.1); Sodium 137 mmol/L (135-145); Total Bilirubin 4.1 mg/dl (0.2-1.3); Total Protein 6.3 g/dl (6.3-8.2); eGFR > 60.00
--- NOTE | 2023-07-02 18:40 | PTCARENOTE ---
Patient c/o abd pain radiating upwards and around to back rated 7/10, PRN 0.5 mg IV dilaudid given at 1601 with no relief; patient rating pain upon reassessment one hour later a 10/10, says she feels a 'crushing' sensation upwards towards her
sternum that started suddenly and is similar to the pain she felt upon admission. Patient also stating onset of nausea. PRN IV zofran given, vitals BP 118/76, HR 97, 97% RA, 97.8F oral, 18 RR. made aware, PRN IV toradol increased to 30 mg per MD
and administered by this RN. MD at bedside to assess patient, one time order of 0.5 mg IV dilaudid placed by and administered by this RN for patient's increased pain - see MAR. Upon reassessment 20 minutes later, patient states relief of nausea
and pain decreased to 4/10. updated, no new orders at this time, patient states no concerns at this time.
[2023-07-02 19:07] LABS: ALT (SGPT) 909 U/L (0-35)
[2023-07-02] MEDS: 0.45%NACL 1000 IV (21:26)
[2023-07-02] MEDS: TYLENOL 650 MG PO (21:43)
[2023-07-02 23:05] VITALS: BP 102/61
[2023-07-03] VITALS (10 sets, daily range): BP systolic 114–136; BP diastolic 65–91
[2023-07-03] MEDS: ZOSYN 50 IV ×4 (02:43→19:52)
[2023-07-03] MEDS: TORADOL 30 MG IV ×3 (02:46→19:52)
[2023-07-03] MEDS: DILAUDID 0.5 MG IV ×2 (07:08→17:26)
[2023-07-03] MEDS: PROTONIX IV 40 MG IV (08:30)
[2023-07-03] MEDS: NSS (PRESERVATIVE FREE) 10 ML IV (08:30)
--- NOTE | 2023-07-03 08:50 | W.PN.GS2 ---
Today's Communication / Plan
-
ERCP per GI.
Assessment / Plan
-
Patient is a 28 yo F POD#2 s/p laparoscopic cholecystectomy with +IOC.
Recovering well. No postoperative concerns. Operative cholangiogram notable for choledocholithiasis, tentative plans for ERCP tomorrow (07/02)
-- Diet per GI
-- Abx per GI
-- DC instructions updated
-- F/u in office in 2-4 weeks
--General surgery will sign off for now, please call with any questions or concerns
Time Spent
Total Time Spent with Patient (in minutes): 10
Subjective Data
-
Date of Service: July 03, 2023
Interval Events:
No acute events overnight. Slept well. Pain Controlled. Denies Nausea/Vomiting, +bowel function.
Objective Data
-
Intake and Output
07/02/23 07/03/23 07/04/23
06:59 06:59 06:59
Intake Total 4070 / 4070 2520 / 2520
Balance 4070 / 4070 2520 / 2520
Intake:
Oral fluids 1470 / 1470 2320 / 2320
IV fluids (Total) 2400 / 2400
normsol 100 / 100
IV piggybacks 200 / 200 200 / 200
Other:
Number of approximated MODERATE 4 3
amounts of urine
Number of approximated LARGE 6
amounts of urine
Vital Signs
Temp Pulse Resp BP Pulse Ox
97.6 F 67 16 117/65 97
07/03/23 07:56 07/03/23 07:56 07/03/23 07:56 07/03/23 07:56 07/03/23 07:56
Lab Results
07/01/23 06:28
Calcium 8.4 mg/dl (8.4-10.2) 07/02/23 18:12
Total Bilirubin 4.1 mg/dl (0.2-1.3) H 07/02/23 18:12
Direct Bilirubin 2.0 mg/dl (0.0-0.4) H 07/01/23 06:29
AST 406 U/L (14-36) H 07/02/23 18:12
ALT 909 U/L (0-35) H* 07/02/23 18:12
Alkaline Phosphatase 320 U/L (38-126) H 07/02/23 18:12
Total Protein 6.3 g/dl (6.3-8.2) 07/02/23 18:12
Albumin 3.6 g/dl (3.5-5.0) 07/02/23 18:12
Physical Exam
-
GENERAL/NEURO: Awake, Alert, no distress
CHEST: Unlabored breathing on RA
ABDOMEN: Soft, Non-Tender, Non-Distended, incisions clean dry and intact.
[2023-07-03 09:00] LABS: ALT (SGPT) 688 U/L (0-35); AST (SGOT) 263 U/L (14-36); Albumin 3.7 g/dl (3.5-5.0); Alkaline Phosphatase 350 U/L (38-126); Blood Urea Nitrogen 7 mg/dl (7-17); Calcium 8.8 mg/dl (8.4-10.2); Carbon Dioxide 24 mmol/L (22-30); Chloride 107 mmol/L (98-107); Estimated Creatinine Clearance > 125 ml/min; Glucose 86 mg/dl (70-99); Potassium 4.1 mmol/L (3.5-5.1); Sodium 138 mmol/L (135-145); Total Bilirubin 4.3 mg/dl (0.2-1.3); Total Protein 6.5 g/dl (6.3-8.2); eGFR > 60.00
--- NOTE | 2023-07-03 10:22 | W.PN.HOSP.TC ---
Today's Communication/Plan
-
ERCP today
continue NPO/IVF and IV Zosyn
Assessment / Plan
Assessment / Plan
Assessment:
Acute calculus cholecystitis - stable after laparoscopic cholecystectomy 06/30.
Choledocholithiasis - GI plans on ERCP today. Transaminases trending down. Continue empiric IV Zosyn.
Microcytic anemia - likely due to state. No signs of iron deficiency based on labs. B12, folic acid normal.
PCOS
Endometriosis
Anxiety/depression - on fluoxetine.
12 weeks
- she is bottle feeding her healthy infant
Morbid obesity due to excess calories
DVT ppx: Lovenox
Code: Full
Anticipated Discharge: Within 24 hours
Subjective/Interval History
-
Date of Service: July 03, 2023
pain minimal at present
NPO for ERCP today
Objective Data
-
Labs:
Laboratory Results
07/03/23
06:57
Sodium 138
Potassium 4.1
Chloride 107
Carbon Dioxide 24
BUN 7
Creatinine 0.7
Glucose 86
Calcium 8.8
Total Bilirubin 4.3 H
AST 263 H
ALT 688 H*
Alkaline Phosphatase 350 H
Vital Signs:
Vital Signs
Temp Pulse Resp BP Pulse Ox
97.6 F 67 16 117/65 97
07/03/23 07:56 07/03/23 07:56 07/03/23 07:56 07/03/23 07:56 07/03/23 07:56
I&O
07/02/23 07/03/23 07/04/23
06:59 06:59 06:59
Intake Total 4070 / 4070 2520 / 2520
Balance 4070 / 4070 2520 / 2520
Physical Exam
-
General: No Apparent Distress
HEENT: Normocephalic and Atraumatic
Respiratory: Negative Wheezes
Cardiac: Regular Rhythm and S1/S2
GI: Soft and Nontender
Genito-urinary: No Costovertebral Tender
Neuro: AO x 3
Psych: Calm
Data Reviewed
-
Total Time Spent with Patient (in minutes): 47
Labs: Labs Reviewed by me
--- NOTE | 2023-07-03 14:35 | CM ---
POD#2 lap choley. IV/AB. Anticipate home with no needs.
[2023-07-03] MEDS: LOVENOX 40 MG SC (17:26)
[2023-07-04] MEDS: ZOSYN 50 IV ×2 (02:10→08:41)
[2023-07-04] MEDS: TORADOL 30 MG IV ×2 (02:56→11:00)
[2023-07-04 03:02] VITALS: BP 116/63
[2023-07-04 07:04] LABS: ALT (SGPT) 588 U/L (0-35); AST (SGOT) 152 U/L (14-36); Albumin 3.5 g/dl (3.5-5.0); Alkaline Phosphatase 378 U/L (38-126); Blood Urea Nitrogen 6 mg/dl (7-17); Calcium 8.6 mg/dl (8.4-10.2); Carbon Dioxide 25 mmol/L (22-30); Chloride 107 mmol/L (98-107); Estimated Creatinine Clearance > 125 ml/min; Glucose 101 mg/dl (70-99); Potassium 4.3 mmol/L (3.5-5.1); Sodium 137 mmol/L (135-145); Total Bilirubin 2.8 mg/dl (0.2-1.3); Total Protein 6.4 g/dl (6.3-8.2); eGFR > 60.00
[2023-07-04 07:05] VITALS: BP 142/80
--- NOTE | 2023-07-04 08:39 | W.PN.GI.CBS2 ---
Today's Communication / Plan
-
GI s/o.
Assessment / Plan
-
28-year-old female with past medical history of asthma, 3 months , who presents to the emergency room for the second time for right sided chest discomfort, nausea and vomiting. The patient was found to have elevated LFTs.
Ultrasound showed cholelithiasis with dilatation of the common bile duct but no choledocholithiasis clearly seen on ultrasound. Currently WBC 6.8, hemoglobin 10.9, hematocrit 34.7, platelets 302, sodium 137, potassium 4.1, chloride 108, CO2 24, BUN
18, creatinine 0.7, glucose 88, total bilirubin 4.0 up from 3.8, direct bilirubin 2.0, AST 769 down from 1031, ALT 1169 down from 1225, alk phos 271 up from 247. Troponin less than 0.012, lipase 140. Ultrasound of the abdomen shows CBD 6 mm.
Cholelithiasis. Mild splenomegaly.
s/p ERCP yesterday, which showed some sludge/small stone fragments but no francisco stone removed. Appears the retained stone seen from IOP had migrated out spontaneously. LFT improving. GI s/o, pls call with questions.
Total Time Spent with Patient (in minutes): 35
Subjective
Subjective
Date of Service: July 04, 2023
Feels better
Objective
Data Reviewed
Laboratory Data:
Laboratory Results
07/01/23 06:28
07/04/23 05:20
Laboratory Results
Total Bilirubin 2.8 mg/dl (0.2-1.3) H 07/04/23 05:20
AST 152 U/L (14-36) H 07/04/23 05:20
ALT 588 U/L (0-35) H* 07/04/23 05:20
Alkaline Phosphatase 378 U/L (38-126) H 07/04/23 05:20
Lipase 95 U/L (23-300) 07/02/23 18:12
Vital Signs and I&O:
Vital Signs
Temp Pulse Resp BP Pulse Ox
97.7 F 80 14 142/80 98
07/04/23 07:05 07/04/23 07:05 07/04/23 07:05 07/04/23 07:05 07/04/23 07:05
I&O
07/03/23 07/04/23 07/05/23
06:59 06:59 06:59
Intake Total 2520 / 2520 570 / 570
Balance 2520 / 2520 570 / 570
[2023-07-04] MEDS: NSS (PRESERVATIVE FREE) 10 ML IV (08:41)
[2023-07-04] MEDS: PROTONIX IV 40 MG IV (08:41)
--- NOTE | 2023-07-04 09:21 | W.PN.HOSP.TC ---
Today's Communication/Plan
-
dc to home later today after diet tolerance
Assessment / Plan
Assessment / Plan
Assessment:
Acute calculus cholecystitis - stable after laparoscopic cholecystectomy 06/30. f/u office in 3 weeks.
Choledocholithiasis - s/p ERCP 07/02 with small stone/sludge fragments. Transaminases trending down. repeat LFTs next week PCP.
Microcytic anemia - likely due to state. No signs of iron deficiency based on labs. B12, folic acid normal.
PCOS
Endometriosis
Anxiety/depression - on fluoxetine.
12 weeks
- she is bottle feeding her healthy
Morbid obesity due to excess calories
DVT ppx: Lovenox
Code: Full
More than 30 minutes spent in discharge including
Final examination of the patient
Summarizing hospital stay
Instructions for continuing care to all relevant caregivers
Preparation of discharge records, prescriptions, and referral forms
Total time spent (in minutes): 41
Anticipated Discharge: Today
Subjective/Interval History
-
Date of Service: July 04, 2023
s/p ERCP
tolerating clears
Objective Data
-
Labs:
Laboratory Results
07/04/23
05:20
Sodium 137
Potassium 4.3
Chloride 107
Carbon Dioxide 25
BUN 6 L
Creatinine 0.6
Glucose 101 H
Calcium 8.6
Total Bilirubin 2.8 H
AST 152 H
ALT 588 H*
Alkaline Phosphatase 378 H
Vital Signs:
Vital Signs
Temp Pulse Resp BP Pulse Ox
97.7 F 80 14 142/80 98
07/04/23 07:05 07/04/23 07:05 07/04/23 07:05 07/04/23 07:05 07/04/23 07:05
I&O
07/03/23 07/04/23 07/05/23
06:59 06:59 06:59
Intake Total 0 / 0 570 / 570
Balance 2519 / 2519 570 / 570
Physical Exam
-
General: No Apparent Distress
HEENT: Normocephalic and Atraumatic
Respiratory: Negative Wheezes
Cardiac: Regular Rhythm
GI: Soft and Nontender
Genito-urinary: No Costovertebral Tender
Musculoskeletal: No Edema
Neuro: AO x 3
Hematologic / Lymphatic: No Lymphadenopathy
Psych: Calm
Data Reviewed
-
Total Time Spent with Patient (in minutes): 41
Labs: Labs Reviewed by me
--- NOTE | 2023-07-04 09:40 | W.DS.TRANS ---
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
-
Discharge Instructions:
Discharge Diagnosis/Procedures Choledocholithiasis s/p laparoscopic
cholecystectomy and ERCP
Diet Low Fat
Activity No strenuous activity
Additional Activity No heavy lifting (>20 lbs) or strenuous
activities for 2 weeks postoperatively
Driving Restrictions No driving if too sore or taking narcotics
Bathing Restrictions OK to Shower
Blood Work repeat labs next Monday - slip given
Wound Care Keep incisions clean and dry. Glue will flake
off in 2 to 3 weeks. Stitches will dissolve.
Instructions:
Stand-Alone Forms:
Changes to Home Medications: No
Discharge Medications:
DC Medications w/original date entered in [email or web address]
fluoxetine 20 mg capsule 20 mg PO DAILY Mental Health/Anxiety 09/30/20
acetaminophen 325 mg tablet 650 mg (2 x 325 mg) PO Q4HPRN PRN Mild Pain / Temp > 101 #60 tabs 07/04/23
Home Medication Changes
Pending Results: No
Total time spent discharging patient (in min): 41
[2023-07-04 12:57] VITALS: BP 131/77
--- NOTE | 2023-07-04 13:18 | PTCARENOTE ---
Patient tolerating diet. No new c/o of abd pain or N/V. Discharge in. Stacia MALLOY doing patient d/c.
== END 2023-07-04 13:09 | disposition home or self-care (01) | DRG 418 ==
LOC: 2 NORTH 02:32
PROVIDERS: Hospitalist; Internal Medicine Gastroenterology; Physician Assistant Medical; ADMITTING PHYSICIAN Hospitalist; ATTENDING PHYSICIAN Internal Medicine; CONSULT PHYSICIAN Internal Medicine Gastroenterology; CONSULT PHYSICIAN Surgery; EMERGENCY PHYSICIAN Emergency Medicine; FAMILY PHYSICIAN Nurse Practitioner Family
PROC: BF101ZZ Fluoroscopy of Bile Ducts using Low Osmolar Contrast (ICD-10-PCS; 2023-07-01)
PROC: 0FT44ZZ Resection of Gallbladder, Percutaneous Endoscopic Approach (ICD-10-PCS; 2023-07-01)
PROC: 0FC98ZZ Extirpation of Matter from Common Bile Duct, Via Natural or Artificial Opening Endoscopic (ICD-10-PCS; 2023-07-03)
DX: K80.12 Calculus of gallbladder with acute and chronic cholecystitis without obstruction (principal); Z68.41 Body mass index [BMI] 40.0-44.9, adult; E66.01 Morbid (severe) obesity due to excess calories; K66.0 Peritoneal adhesions (postprocedural) (postinfection); D50.9 Iron deficiency anemia, unspecified; F41.9 Anxiety disorder, unspecified; F32.A Depression, unspecified
CPT/HCPCS: 88304; 71275; 74300; 74330; 76000; 80053; 82248; 82607; 82728; 82746; 83540; 83550; 83690; 84484; 85025; 85027; 85045; 93005; 96361; 96365; 96375; 99285; A4300; C1769; J1610; Q9967

== ENCOUNTER → 2024-02-20 11:32 | Outpatient (REF) | payer OTHER, SELFPAY | LOC: DHSLP 11:32 | PROVIDERS: ATTENDING PHYSICIAN Nurse Practitioner Family | DX: G47.33 Obstructive sleep apnea (adult) (pediatric) (principal); R06.83 Snoring | CPT/HCPCS: 95800 ==

== ENCOUNTER → 2024-06-19 17:27 | Outpatient (REF) | payer OTHER, SELFPAY | LOC: RAD 17:27 | PROVIDERS: ATTENDING PHYSICIAN Obstetrics & Gynecology; FAMILY PHYSICIAN Nurse Practitioner Family | DX: N83.202 Unspecified ovarian cyst, left side (principal) | CPT/HCPCS: 76830; 76856 ==

== ENCOUNTER → 2024-12-09 08:39 | Outpatient (REF) | payer OTHER, SELFPAY | LOC: WDC 08:39 | PROVIDERS: ATTENDING PHYSICIAN Obstetrics & Gynecology; FAMILY PHYSICIAN Nurse Practitioner Family | DX: N64.4 Mastodynia (principal) | CPT/HCPCS: 76642 ==